=== PATIENT | female | born 1970 | race Caucasian/White ===

== ENCOUNTER 2017-07-16 08:00 | Outpatient (RCR) | payer OTHER ==
[2017-07-13 08:06] VITALS: BP 115/66
[2017-07-13 08:19] LABS: PLATELET COUNT, AUTOMATED 258 K/uL (150-450)
[~2017-07-16] VITALS: Ht 160 cm; Wt 87.1 kg
[~2017-07-16 08:00] MED LIST: CALC500T6 PO; IBUP800T37 PO; LOR5/325 PO; METR45CR10 TP; MULT1CAP59 PO; OMEG10007 PO; OXYC-373 PO; TAMO20TA24 PO; VITA150T2 PO
[2017-07-16 08:08] VITALS: BP 134/79
--- NOTE | 2017-07-17 18:02 | ONCOLOGY FOLLOW UP NOTE ---
EVENT DATE: July 16, 2017 CHIEF COMPLAINT/REASON FOR VISIT Mrs. Marcum is a pleasant 46-year-old female with DCIS of the right breast, having finished lumpectomy and radiation therapy, now on tamoxifen starting in May 2017. HISTORY OF PRESENT ILLNESS Mrs. Marcum is an extremely pleasant 46-year-old patient of Dr. Tobias with a strong family history of breast cancer, that presented in the late fall, 2016 with a new diagnosis of DCIS of the right breast. She had a benign breast biopsy in approximately 2008. She was getting routine mammography and this showed a concerning microcalcification cluster in the right breast that led to biopsy and subsequent lumpectomy. There was no invasive carcinoma thankfully. She finished standard radiation with a boost under the care of Dr. Kimble. She is currently doing well. She is tolerating the tamoxifen very well as she is prermenopausal. She did have an ablation which has led her to not have any periods, but we believe at this time that she is still premenopausal. We discussed how we could check FSH in the future to determine whether or not we want to consider switching to an aromatase inhibitor. However, she is tolerating the current treatment extremely well. We discussed DVT prevention as well. BREAST CANCER RISK FACTORS Include a maternal uncle diagnosed in his 60s, as well as the patient's mother being diagnosed in her 60s as well. She had BRCA testing done which was negative. Menarche started at age 13 with her first child born at age 26. She did use oral contraception for about 15 years until approximately age 29. No hormone replacement therapy. She has been doing annual mammograms since age 38 with clinical breast exams since age 26. SOCIAL HISTORY Patient has presented by herself. She is working two jobs currently and has high stress. FAMILY HISTORY Noted above. REVIEW OF SYSTEMS CONSTITUTIONAL: No fevers, chills, weight change. She does have some mild night hot flashes, but they are tolerable. SKIN: Healing erythema and bruising of the right breast from radiation. HEENT: No headache or vision changes. CARDIOVASCULAR: No chest pain, dyspnea on exertion or edema. RESPIRATORY: No shortness of breath, wheeze, cough. GASTROINTESTINAL: No nausea, vomiting, abdominal pain. GENITOURINARY: No dysuria or hematuria. HYDRATION PLANT OPERATOR: No abnormal periods. MUSCULOSKELETAL: No weakness or joint pain. PSYCHIATRIC: No anxiety or depression. ENDOCRINE: No heat or cold intolerance. NEUROLOGIC: No concerning symptoms or deficits. The remainder of the 14-point review of systems is otherwise negative. PHYSICAL EXAMINATION VITAL SIGNS: Blood pressure 134/79, pulse 89, respiratory rate 16, temperature 97.4 Fahrenheit, oxygen saturation 95% on room air. Weight 87.1 kg. Pain 0/10 , fatigue 0/10. GENERAL: In stable condition, resting comfortably in the chair. HEENT: Normocephalic, atraumatic. ABDOMEN: Soft, nontender. No masses or organomegaly. LYMPHATIC: No appreciable cervical, supraclavicular or axillary adenopathy. BREAST: Exam deferred, as it is still healing from the radiation change. EXTREMITIES: Without clubbing, cyanosis or edema. The remainder of the full physical exam is otherwise unremarkable. IMPRESSION AND PLAN Mrs. Marcum is a very pleasant 46-year-old female with the following: Right- sided ductal carcinoma in situ. No invasive carcinoma. We strongly recommend a minimum of five years adjuvant hormonal therapy without chemotherapy. She is tolerating the tamoxifen extremely well. We discussed alternatives at her initial consultation in 2017. She has negative BRCA testing. Recommend annual HYDRATION PLANT OPERATOR evaluation while on tamoxifen. We again discussed the potential side effects including, but not limited to DVT, endometrial cancer. We would like to see her every six months for five years. Billing: Return visit level 3. Total time 20 minutes, counseling time 15. MTDD
== END 2017-09-28 16:17 | disposition home or self-care (01) ==
LOC: ONC 08:00
PROVIDERS: ATTEND Internal Medicine
DX: D05.11 Intraductal carcinoma in situ of right breast (principal); Z92.3 Personal history of irradiation
CPT/HCPCS: 36415; 82040; 82247; 82310; 82374; 82435; 82565; 82947; 84075; 84132; 84155; 84295; 84450; 84460; 84520; 85025; 99212

== ENCOUNTER → 2017-08-21 | Outpatient (CLI) | payer OTHER ==
--- NOTE | 2017-09-04 14:12 | RADIOLOGY IMAGING REPORT ---
FACILITY: [facility] PATIENT NAME: JAME SIDUH : [id number] MR: [id number] V: [id number] EXAM DATE: [id number] ORDERING PHYSICIAN: GURU SALAZAR TECHNOLOGIST: Africa Lynch PROCEDURE:UNILATERAL RIGHT DIGITAL DIAGNOSTIC MAMMOGRAM WITH CAD ASSISTED INTERPRETATION & 3D TOMOSYNTHESIS COMPARISON:Prior mammograms 02/06/17, 12/29/16, 12/29/15 INDICATIONS:PRIOR HISTORY OF RIGHT BREAST CANCER. FINDINGS: Moderately heterogeneous fibroglandular tissue is seen throughout the Right breast. The area of architectural distortion and postsurgical scaring in the upper outer quadrant of the Right breast and in the 12 o'clock position of the Right breast are again seen. Previously noted calcifications in the 12 o'clock position of the Right breast are no longer identified. DIAGNOSTIC CATEGORY 3--PROBABLY BENIGN FINDING. RECOMMENDATIONS: SIX MONTH FOLLOW-UP DIAGNOSTIC MAMMOGRAM: BILATERAL BREASTS. IMPRESSION: BIRADS 3: Probably benign finding A 6 month follow-up bilateral mammogram is recommended at which time the patient will be due for her annual mammogram. Dictated by: Arcelia Pandey M.D. on 08/21/2017 at 17:13 Transcribed by: DAVID on 08/22/2017 at 8:44 Approved by: Arcelia Pandey M.D. on 08/22/2017 at 14:34 [facility]
== END ==
LOC: MAMO 13:41
PROVIDERS: ATTEND Radiology Radiation Oncology
DX: D05.11 Intraductal carcinoma in situ of right breast (principal)
CPT/HCPCS: 77065

== ENCOUNTER 2017-08-28 11:22 | Outpatient (RCR) | payer OTHER ==
[2017-03-14 07:39] VITALS: BP 118/83
== END 2017-08-30 14:51 | disposition home or self-care (01) ==
LOC: RAON 11:22
PROVIDERS: ATTEND Radiology Radiation Oncology
DX: D05.11 Intraductal carcinoma in situ of right breast (principal); Z17.0 Estrogen receptor positive status [ER+]; Z92.3 Personal history of irradiation
CPT/HCPCS: 99212

== ENCOUNTER 2017-11-13 14:54 | Outpatient (RCR) | payer OTHER ==
[2017-03-14 07:39] VITALS: BP 118/83
[2017-11-14] MEDS ORDERED: MAGN200T3 PO (11:39)
[2017-11-14] MEDS ORDERED: GLUC100026 PO (11:39)
== END 2017-11-20 09:45 | disposition home or self-care (01) ==
LOC: RAON 14:54
PROVIDERS: ATTEND Radiology Radiation Oncology
DX: D05.11 Intraductal carcinoma in situ of right breast (principal); Z17.0 Estrogen receptor positive status [ER+]; Z92.3 Personal history of irradiation; Z79.810 Long term (current) use of selective estrogen receptor modulators (SERMs)
CPT/HCPCS: 99212

== ENCOUNTER → 2018-02-13 | Outpatient (CLI) | payer OTHER ==
[~2018-02-13] MED LIST changes: +GLUC100026 PO; +MAGN200T3 PO
--- NOTE | 2018-02-13 17:13 | RADIOLOGY IMAGING REPORT ---
FACILITY: [facility] [place] PATIENT NAME: JAME SIDUH : [id number] MR: [id number] V: [id number] EXAM DATE: [id number] ORDERING PHYSICIAN: LIBERTAD KAMINSKI TECHNOLOGIST: Africa Lynch PROCEDURE:BILATERAL DIAGNOSTIC DIGITAL MAMMOGRAM WITH CAD ASSISTED INTERPRETATION & 3D TOMOSYNTHESIS COMPARISON:Prior mammograms 08/21/17, 12/29/16, 12/29/15, 01/20/15. INDICATIONS:HX BREAST CA FINDINGS: Moderately dense fibroglandular tissue is seen throughout the breasts. The parenchymal pattern has remained stable allowing for difference in mammographic technique & patient positioning. There is an area of architectural distortion in the 12 o'clock position upper outer quadrant of the Right breast again seen. There is no demonstration of malignant appearing mass, malignant appearing calcifications or other secondary sign of malignancy in either breast. DIAGNOSTIC CATEGORY 2--BENIGN FINDING. RECOMMENDATIONS: ROUTINE MAMMOGRAM AND CLINICAL EVALUATION. IMPRESSION: BIRADS 2: Benign finding. No significant abnormality is seen at this time. Dictated by: Arcelia Pandey M.D. on 02/13/2018 at 15:08 Transcribed by: DAVID on 02/13/2018 at 15:19 Approved by: Arcelia Pandey M.D. on 02/13/2018 at 17:12 [facility]
== END ==
LOC: MAMO 13:57
PROVIDERS: ATTEND Radiology Radiation Oncology
DX: D05.11 Intraductal carcinoma in situ of right breast (principal)
CPT/HCPCS: 77062; 77066

== ENCOUNTER 2018-02-21 11:00 | Outpatient (RCR) | payer OTHER ==
[2017-03-14 07:39] VITALS: BP 118/83
--- NOTE | 2018-02-21 16:58 | ONCOLOGY FOLLOW UP NOTE ---
EVENT DATE: February 21, 2018 REASON FOR VISIT Oncologic reevaluation regarding ER positive DCIS of the right breast status post lumpectomy followed by right whole breast radiotherapy completed in April of 2017. Patient was initiated on tamoxifen in April 2017. HISTORY OF PRESENT ILLNESS Patient presents today for followup. On presentation today, patient overall feels well. She denies any new breast masses, skin changes, nipple discharge or breast pain. She has no right arm swelling. She has full range of motion of her right arm. The patient continues on tamoxifen. She does report mild hot flashes often at night which do wake her up. The patient has been amenorrheic now over a year and a half. She has no vaginal bleeding. She has no lower extremity swelling. The patient does follow up with Cheyanne regularly, who is managing her tamoxifen. The patient underwent a bilateral mammogram on February 13, 2018 which was benign BI-RADS 2 bilaterally. There is an area of architectural distortion in the 12 o'clock position of the upper outer quadrant of the right breast which is stable. PAST MEDICAL HISTORY Right breast DCIS, see above. PAST SURGICAL HISTORY 1. Status post uterine ablation. 2. History of lumpectomy. ALLERGIES PENICILLIN. MEDICATIONS 1. Glucosamine. 2. Magnesium oxide. 3. Tamoxifen. 4. Multivitamin. 5. Hortense-3 fish oil. 6. Vitamin B complex. SOCIAL HISTORY The patient is with two children. Patient drinks alcohol socially. No history of tobacco use. PHYSICAL EXAMINATION VITAL SIGNS: Temperature 98.4, pulse 63, blood pressure 126/70, respiratory rate 16, O2 saturation is 96% on room air. GENERAL APPEARANCE: The patient is sitting comfortably in a chair in no acute distress. HEENT: Pupils equal, round, reactive to light and accommodation. Extraocular movements are intact. There are no lesions of the oropharynx. NECK: The neck is supple. Trachea is midline. LYMPHATICS: No palpable supraclavicular lymphadenopathy bilaterally. LUNGS: Clear to auscultation and percussion bilaterally. CARDIOVASCULAR: Regular rate and rhythm. Normal S1, S2. No murmurs, rubs or gallops. ABDOMEN: Soft, nontender with active bowel sounds. No hepatosplenomegaly. EXTREMITIES: No edema, clubbing or cyanosis. NEUROLOGIC: The patient is alert, oriented x3. Gait is normal. BREASTS: The patient has symmetric breasts with excellent cosmesis. She has a well healed lumpectomy scar in the right upper outer quadrant. The patient has very minimal fibrosis in her right upper outer quadrant corresponding to her lumpectomy cavity. The patient has no dominant breast masses bilaterally on spine examination. PERFORMANCE STATUS: 100%. IMPRESSION Right breast ductal carcinoma in situ status breast conserving therapy. The patient clinically has no evidence of recurrent disease. She has benign bilateral mammograms. She continues on tamoxifen. PLAN The patient will follow up with radiation oncology in one year at the time of her bilateral mammogram. She will continue to follow closely with Dr. Edward who is managing her tamoxifen. [facility]
== END 2018-03-06 09:21 | disposition home or self-care (01) ==
LOC: RAON 11:00
PROVIDERS: ATTEND Radiology Radiation Oncology
DX: C50.919 Malignant neoplasm of unspecified site of unspecified female breast (principal); Z17.0 Estrogen receptor positive status [ER+]; Z79.810 Long term (current) use of selective estrogen receptor modulators (SERMs)
CPT/HCPCS: 99212

== ENCOUNTER 2018-07-02 13:52 | Outpatient (RCR) | payer OTHER ==
[2017-03-14 07:39] VITALS: BP 118/83
--- NOTE | 2018-07-03 17:45 | ONCOLOGY FOLLOW UP NOTE ---
EVENT DATE: July 02, 2018 CHIEF COMPLAINT Followup for DCIS. HISTORY OF PRESENT ILLNESS Patient is a 47-year-old female who was seen today in followup. She was diagnosed with DCIS in April 2017. She is currently on tamoxifen, which she started in April 2017. She is tolerating this well. She does describe night sweats, but does not feel it is interfering with her sleep. She denies any bony arthralgias. General sense of well-being is good. ONCOLOGY HISTORY The patient is a 47-year-old female who had an abnormal mammogram in the late fall 2016 with concerning microcalcifications in the right breast. She underwent biopsy, followed by lumpectomy which revealed stage zero, ER-positive DCIS. She completed adjuvant radiation in April 2017. Began tamoxifen if April 2017. MEDICAL HISTORY 1. Right breast DCIS, April 2017. SURGICAL HISTORY 1. Right lumpectomy, 2016. 2. Uterine ablation. FAMILY HISTORY Maternal uncle was diagnosed with breast cancer in his 60s. Mother was diagnosed in her 60s. BRCA negative SOCIAL HISTORY Patient is . They have two grown children. 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 She does not smoke cigarettes. She drinks alcohol socially. MEDICATIONS 1. Tamoxifen 20 mg daily. 2. Glucosamine. 3. Magnesium oxide. 4. Multivitamin. 5. Fish oil. 6. Vitamin B complex. ALLERGIES PENICILLINS. REVIEW OF SYSTEMS A 12-point review of systems is performed and is negative except as stated above. PHYSICAL EXAMINATION VITAL SIGNS: Reviewed and recorded in chart. GENERAL: Patient is a well-developed, well-nourished female in no acute distress. HEAD: Normocephalic, atraumatic. EYES: Sclerae anicteric. MOUTH: Moist mucous membranes. No lesions. NECK: Supple. No palpable adenopathy. BREASTS: Status post right lumpectomy with minimal scar tissue present. No evidence of recurrence. Left breast is without masses. LUNGS: Clear bilaterally. CARDIOVASCULAR: Heart rate regular, 76 per minute, without murmur, S3, or S4. ABDOMEN: Soft, nontender, with active bowel sounds. No organomegaly. EXTREMITIES: No edema. NEUROLOGIC: Nonfocal. LABORATORY No lab today. IMPRESSION AND PLAN The patient is a 47-year-old female diagnosed with ductal carcinoma in situ of the right breast. She underwent right lumpectomy and completed whole breast radiation in April 2017. She began on adjuvant tamoxifen in April 2017. 1. Right breast DCIS. No evidence of disease recurrence. She will continue on tamoxifen, which she is tolerating with only minimal toxicity. 2. Night sweats. She describes these as ongoing. However, she does not believe it is interfering with her sleep. She does not have significant hot flashes during the day. 3. Breast surveillance. Bilateral mammogram on 02/19/18 was BIRADS category 2. This will be repeated in mid February 2019. 4. Follow up with Dr. Edward on 07/08/18. She will see Dr. Carmichael in one year. Dr. Carmichael was present during this exam and agrees with assessment and plan. [facility]
[2018-07-16] MEDS ORDERED: CALC500T6 PO (12:41)
== END 2018-07-29 11:46 | disposition home or self-care (01) ==
LOC: RAON 13:52
PROVIDERS: ATTEND Radiology Radiation Oncology
DX: D05.91 Unspecified type of carcinoma in situ of right breast (principal); Z79.810 Long term (current) use of selective estrogen receptor modulators (SERMs); Z92.3 Personal history of irradiation

== ENCOUNTER → 2018-09-18 | Outpatient (CLI) | payer OTHER | LOC: MAMO 09-17 00:47 | PROVIDERS: ATTEND Emergency Medicine | DX: Z02.9 Encounter for administrative examinations, unspecified (principal) ==

== ENCOUNTER 2018-09-23 13:47 | Outpatient (RCR) | payer OTHER ==
[2018-09-23 13:52] VITALS: BP 130/80
--- NOTE | 2018-09-24 05:54 | ONCOLOGY FOLLOW UP NOTE ---
EVENT DATE: September 23, 2018 CHIEF COMPLAINT/REASON FOR VISIT Ms. Marcum is a pleasant 48-year-old female here for followup for DCIS. HISTORY OF PRESENT ILLNESS Ms. Marcum returns. She was diagnosed with DCIS in April 2017. She is currently on tamoxifen, which she started in April 2017 and is tolerating quite well. She does have some borderline night sweats, but these do not interfere with her sleep. It is unclear whether or not she is postmenopausal, as she had a significant uterine ablation and her periods have been infrequent since then. No arthralgias, pain or other concerns. She should follow with SEWER INSPECTOR closely, as there is increased risk of endometrial cancer with tamoxifen. The benefits outweigh the risks in preventing relapse of the DCIS as well as second breast cancers. ONCOLOGY HISTORY The patient is a 48-year-old female who had an abnormal mammogram in the late fall 2016 with concerning microcalcifications in the right breast. She underwent biopsy, followed by lumpectomy which revealed stage zero, ER-positive DCIS. She completed adjuvant radiation in April 2017. Began tamoxifen in April 2017. MEDICAL HISTORY Right breast DCIS, April 2017. SURGICAL HISTORY 1. Right lumpectomy, 2016. 2. Uterine ablation. FAMILY HISTORY Maternal uncle was diagnosed with breast cancer in his 60s. Mother was diagnosed in her 60s. BRCA negative SOCIAL HISTORY Patient is . They have two grown children. 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 She does not smoke cigarettes. She drinks alcohol socially. MEDICATIONS 1. Tamoxifen 20 mg daily. 2. Glucosamine. 3. Magnesium oxide. 4. Multivitamin. 5. Fish oil. 6. Vitamin B complex. ALLERGIES PENICILLINS. REVIEW OF SYSTEMS CONSTITUTIONAL: No fevers or chills. HEENT: No headache or vision changes. CARDIOVASCULAR: No chest pain, dyspnea on exertion, or edema. RESPIRATORY: No shortness of breath, wheeze, or cough. GI: No nausea, vomiting, diarrhea, or constipation. : No dysuria or hematuria. SEWER INSPECTOR: No bleeding or other concerns. MUSCULOSKELETAL: No weakness or joint pain. NEUROLOGIC: No headache or focal deficits. HEMATOLOGIC: No bruising or bleeding. SKIN: No concerning rash or lesions. Remainder of 14-point review of systems otherwise negative. PHYSICAL EXAMINATION VITAL SIGNS: Blood pressure 130/80, pulse 93, respiratory rate 16, temperature 99 Fahrenheit, oxygen saturation 96% on room air. Weight 89.1 kg. Pain 0/10, fatigue 0/10. GENERAL: Stable condition, resting comfortably in the chair. HEENT: Normocephalic, atraumatic. CARDIOVASCULAR: Regular rate and rhythm. LUNGS: Clear. ABDOMEN: Soft, nontender. EXTREMITIES: No clubbing, cyanosis, or edema. SKIN: No concerning findings. BREASTS: Exam deferred today. She had a full breast exam done in June 2018. She is due for her next mammogram in the fall. IMPRESSION/REPORT/PLAN Ms. Marcum is a very pleasant 48-year-old female with the followin. Right breast ductal carcinoma in situ with no evidence of disease recurrence. She will continue on tamoxifen, which she is tolerating well with minimal toxicity. 2. SEWER INSPECTOR. She should follow up with SEWER INSPECTOR regularly while on tamoxifen. She is currently believed to be premenopausal. 3. Breast surveillance. Her next mammogram is due in February 2019, after having a BIRADS category 2 mammogram in February 2018. Answered all of her questions today. BILLING Return visit level 3. Total time 20 minutes, counseling time 15. MTDD
== END 2018-10-02 09:01 | disposition home or self-care (01) ==
LOC: ONC 13:47
PROVIDERS: ATTEND Internal Medicine
DX: D05.11 Intraductal carcinoma in situ of right breast (principal); Z79.810 Long term (current) use of selective estrogen receptor modulators (SERMs); Z92.3 Personal history of irradiation
CPT/HCPCS: 99212